=== PATIENT | female | born 1990 ===

== ENCOUNTER 2018-05-04 11:01 | Day surgery (SDC) | payer OTHER ==
[~2018-05-04 11:01] MED LIST: Buspirone HCl7.5 MG PO; CYCL10 PO; DIAZ5 PO; HYDACE5 PO; METPHE10 PO; PROM25 PO; VENL150ER PO
[2018-05-04] MEDS ORDERED: CLON1 PO (15:49)
[2018-05-04] MEDS ORDERED: MELO7.5 PO (15:50)
== END 2018-05-04 16:43 | disposition home or self-care (01) ==
LOC: ATC 11:01
DX: G35 Multiple sclerosis (principal)
CPT/HCPCS: 96365; J2930

== ENCOUNTER 2018-05-05 10:23 | Day surgery (SDC) | payer OTHER ==
[~2018-05-05 10:23] MED LIST changes: +CLON1 PO; +MELO7.5 PO
== END 2018-05-05 16:55 | disposition home or self-care (01) ==
LOC: ATC 10:23
DX: G35 Multiple sclerosis (principal)
CPT/HCPCS: 96365; J2930

== ENCOUNTER 2018-05-07 15:38 | Day surgery (SDC) | payer OTHER | END 2018-05-07 16:45 | disposition home or self-care (01) | LOC: ATC 15:38 | DX: G35 Multiple sclerosis (principal) | CPT/HCPCS: 96365; J2930 ==

== ENCOUNTER 2018-05-08 14:07 | Day surgery (SDC) | payer OTHER | END 2018-05-08 14:55 | disposition home or self-care (01) | LOC: ATC 14:07 | DX: G35 Multiple sclerosis (principal) | CPT/HCPCS: 96365; J2930 ==

== ENCOUNTER 2018-05-09 08:42 | Day surgery (SDC) | payer OTHER | END 2018-05-09 15:54 | disposition home or self-care (01) | LOC: ATC 08:42 | DX: G35 Multiple sclerosis (principal) | CPT/HCPCS: 96365; J2930 ==

== ENCOUNTER 2018-05-15 22:50 | Emergency (ER) | payer OTHER ==
[~2018-05-15] VITALS: Ht 160 cm; Wt 77.1 kg
== END 2018-05-16 00:58 | disposition home or self-care (01) ==
LOC: ER 22:50
DX: S46.002A Unspecified injury of muscle(s) and tendon(s) of the rotator cuff of left shoulder, initial encounter (principal); F17.210 Nicotine dependence, cigarettes, uncomplicated; Z88.8 Allergy status to other drugs, medicaments and biological substances; Z79.899 Other long term (current) drug therapy; W18.30XA Fall on same level, unspecified, initial encounter
CPT/HCPCS: 73030; 99283-25

== ENCOUNTER 2018-11-21 14:01 | Day surgery (SDC) | payer OTHER ==
[~2018-11-21 14:01] MED LIST changes: +AMPDEX15CR PO; +Tysabri300 MG/15 IV
== END 2018-11-21 16:46 | disposition home or self-care (01) ==
LOC: ATC 14:01
DX: G35 Multiple sclerosis (principal); Z88.8 Allergy status to other drugs, medicaments and biological substances
CPT/HCPCS: J2323

== ENCOUNTER 2018-12-28 00:19 | Day surgery (SDC) | payer OTHER ==
--- NOTE | 2018-12-28 14:41 | NUR ---
OBSERVATION: PER PROTOCOL, PT WILL BE OBSERVED FOR 60 MIN, PT HAS 0 S/S OF ANY DISTRESS/REACTION, CALL LIGHT AND FRIEND BY SIDE.
== END 2018-12-28 22:49 | disposition home or self-care (01) ==
LOC: ATC 00:19
DX: G35 Multiple sclerosis (principal); Z79.899 Other long term (current) drug therapy; Z88.8 Allergy status to other drugs, medicaments and biological substances
CPT/HCPCS: 96365; J2323

== ENCOUNTER 2019-02-01 00:04 | Day surgery (SDC) | payer OTHER | END 2019-02-01 15:57 | disposition home or self-care (01) | LOC: ATC 00:04 | DX: G35 Multiple sclerosis (principal) | CPT/HCPCS: 96365; J2323 ==

== ENCOUNTER 2019-04-28 00:33 | Day surgery (SDC) | payer OTHER ==
--- NOTE | 2019-04-28 16:24 | NUR ---
NO S/S OF REACTION. PT DICHARGED. NO COMPLAINTS.
== END 2019-04-28 16:15 | disposition home or self-care (01) ==
LOC: ATC 00:33
DX: G35 Multiple sclerosis (principal)
CPT/HCPCS: 96365; J2323

== ENCOUNTER → 2022-03-30 | Outpatient (CLI) | payer OTHER | LOC: PLD 07:35 → LAB SHORT 07:35 | DX: D22.72 Melanocytic nevi of left lower limb, including hip (principal) | CPT/HCPCS: 88305 ==

== ENCOUNTER 2022-11-27 18:55 | Emergency (ER) | payer OTHER ==
[~2022-11-27] VITALS: Ht 160 cm; Wt 72.6 kg
[2022-11-27 19:02] VITALS: BP 112/87
[2022-11-27] MEDS ORDERED: PRED20 PO (19:17)
[2022-11-27] MEDS ORDERED: AMOCLA875 PO (19:17)
== END 2022-11-27 19:29 | disposition home or self-care (01) ==
LOC: ER 18:55
DX: K04.7 Periapical abscess without sinus (principal); G35 Multiple sclerosis; F17.210 Nicotine dependence, cigarettes, uncomplicated; Z88.8 Allergy status to other drugs, medicaments and biological substances; Z79.52 Long term (current) use of systemic steroids; Z79.899 Other long term (current) drug therapy
CPT/HCPCS: 99282; A9270; J1100